=== PATIENT | male | born 1940 | race Caucasian/White ===

== ENCOUNTER 2020-07-17 14:58 | Outpatient (RCR) | payer MEDICARE, OTHER, SELFPAY ==
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
== END 2020-08-02 16:15 | disposition home or self-care (01) ==
LOC: CHSPT 14:58
DX: M25.561 Pain in right knee (principal); T84.84XA Pain due to internal orthopedic prosthetic devices, implants and grafts, initial encounter; Z96.651 Presence of right artificial knee joint
CPT/HCPCS: 97110; 97140; 97161

== ENCOUNTER 2021-06-16 20:57 | Emergency (ER) | payer MEDICARE, OTHER, SELFPAY ==
[2021-06-16 20:59] VITALS: BP 148/102; PULSE 74; RESP 20; TEMP 36.7; O2SAT 99
--- NOTE | 2021-06-16 21:15 | ED.NAVMDI ---
HPI - Nausea/Vomiting/Diarrhea General Chief complaint: Nausea/Vomiting/Diarrhea Stated complaint: weakness/ n/v Time Seen by Provider: 06/16/21 21:00 History of Present Illness HPI Narrative: 80-year-old male presents the emergency room with complaints of nausea and vomiting that started tonight. Admits to one episode of vomiting this evening. Denies diarrhea constipation, or abdominal pain. Patient states that he was diagnosed with Covid 4 weeks ago, and has not had an appetite since. Patient states that he has had to force himself to eat food since having Covid. Patient reports heavy alcohol use drinking anywhere from 10-20 alcoholic drinks a day. Related Data Allergies Allergy/AdvReac Type Severity Reaction Status Date / Time No Known Allergies Allergy Unknown Verified 06/16/21 21:28 Review of Systems Review of Systems: CONSTITUTIONAL: Denies fever, chills, or sweats. EYES: Denies visual changes, redness, or discharge. ENT: Denies rhinorrhea, congestion, sore throat, or otalgia. CARDIOVASCULAR: Denies chest pain, palpitations, or edema. RESPIRATORY: Denies cough or dyspnea. GASTROINTESTINAL: Denies abdominal pain. Reports nausea vomiting GENITOURINARY: Denies dysuria or hematuria. SKIN: Denies rash or itching. MUSCULOSKELETAL: Denies back pain, joint pain, or myalgia. NEUROLOGIC: Denies headache, numbness, dizziness, or weakness. PSYCHIATRIC: Denies anxiety or depression. Exam Narrative: GENERAL: Well-appearing, well-nourished, and in no acute distress. HEAD: Normocephalic, atraumatic. EYES: PERRLA and EOMI. ENT: Nares clear, no rhinorrhea or epistaxis. Mucous membranes moist. NECK: Supple. No adenopathy or masses. No carotid bruits or JVD CHEST: Clear to auscultation. No respiratory distress. No wheezes rales or rhonchi HEART: Regular rate and rhythm. No murmur heard. Normal peripheral pulses. ABDOMEN: Soft, nontender, distended, normal active bowel sounds. EXTREMITIES: Normal range of motion. No edema. SKIN: Warm, dry, no rash. NEURO: No focal deficits. Alert and oriented x3. PSYCH: Normal mood and affect. Course Vital Signs Vital signs: Vital Signs Temperature 36.7 C 06/16/21 20:59 Pulse Rate 74 06/16/21 20:59 Respiratory Rate 20 06/16/21 20:59 Blood Pressure 148/102 H 06/16/21 20:59 Pulse Oximetry 99 06/16/21 20:59 Temperature 36.7 C 06/16/21 20:59 Pulse Rate 74 06/16/21 20:59 Respiratory Rate 20 06/16/21 20:59 Blood Pressure 148/102 H 06/16/21 20:59 Pulse Oximetry 99 06/16/21 20:59 MDM - Nausea/Vomiting/Diarrhea MDM Narrative Medical decision making narrative: 80-year-old male came to the emergency room with complaints of feeling dehydrated nauseated. CMP shows an a elevated AST and ALT slight hyponatremia, likely related to his heavy alcohol intake. EtOH level is .99. CBC is unremarkable. Ketonuria is present likely due to dehydration. Patient was given a liter of fluid and Zofran, states that he feels much better and like to be discharged with gastro enteritis. Lab Data Attestation: I reviewed the patient's lab results. Result diagrams: 06/16/21 21:16 06/16/21 21:16 Labs: Lab Results 06/16/21 06/16/21 06/16/21 Range/Units 21:16 21:16 21:16 WBC 6.2 (4.5-10.0) K/mm3 RBC 4.33 L (4.6-6.20) M/mm3 Hgb 14.4 (14.0-18.0) g/dL Hct 41.5 L (42.0-52.0) % MCV 95.8 (80-100) fl MCH 33.3 (26-34) pg MCHC 34.7 (32-36) g/dl RDW 13.7 (11.5-14.5) % Plt Count 85 L (150-375) k/mm3 MPV 12.7 H (7.4-10.4) fl Immature Gran % (Auto) 0.3 (0-0.5) % Neut % (Auto) 62.3 (45.5-73.1) % Lymph % (Auto) 17.2 L (18.3-44.2) % Moore % (Auto) 11.9 H (2.6-8.5) % Eos % (Auto) 7.2 H (0-4.4) % Baso % (Auto) 1.1 (0.2-1.2) % Lymph # (Auto) 1.07 (0.9-3.2) K/mm3 Moore # (Auto) 0.7 H (0.1-0.6) K/mm3 Eos # (Auto) 0.5 H (0-0.3) K/mm3 Baso # (Auto) 0.1 (0.0-0.1) K/mm3 Abs Imm
[2021-06-16 21:23] LABS: Basophils Absolute Auto 0.1 K/mm3 (0.0-0.1); Basophils Percent Auto 1.1 % (0.2-1.2); Eosinophils Absolute Auto 0.5 K/mm3 (0-0.3); Eosinophils Percent Auto 7.2 % (0-4.4); Hematocrit 41.5 % (42.0-52.0); Hemoglobin 14.4 g/dL (14.0-18.0); Immature Granulocyte Absolute 0.02 K/mm3 (0.00-0.031); Immature Granulocyte Percent A 0.3 % (0-0.5); Lymphocytes Absolute Auto 1.07 K/mm3 (0.9-3.2); Lymphocytes Percent Auto 17.2 % (18.3-44.2); Mean Corpuscular HGB Conc 34.7 g/dl (32-36); Mean Corpuscular Hemoglobin 33.3 pg (26-34); Mean Corpuscular Volume 95.8 fl (80-100); Mean Platelet Volume 12.7 fl (7.4-10.4); Monocytes Absolute Auto 0.7 K/mm3 (0.1-0.6); Monocytes Percent Auto 11.9 % (2.6-8.5); Neutrophils Absolute Auto 3.9 K/mm3 (1.3-6.7); Neutrophils Percent Auto 62.3 % (45.5-73.1); Platelet Count Result 85 k/mm3 (150-375); Red Blood Count 4.33 M/mm3 (4.6-6.20); Red Cell Distribution Width 13.7 % (11.5-14.5); White Blood Count 6.2 K/mm3 (4.5-10.0)
[2021-06-16] MEDS: ONDANSETRON INJ 4 MG/2 ML VIAL IV PUSH (21:26)
[2021-06-16] MEDS: SODIUM CHLORIDE 0.9% IV 1,000 ML 999 ML IV CONT (21:26)
[2021-06-16 21:33] LABS: Ethanol 99 mg/dL (<10)
[2021-06-16 21:52] LABS: Add Urine Microscopic? YES; Appearance Urine Clear (Clear); Bilirubin Urine Negative (Negative); Blood Urine 2+ (Negative); Color Urine Yellow (Yellow); Glucose Urine UA Negative (Negative); Ketones Urine 1+ mg/dL (Negative); Leukocyte Esterase Ur 1+ LEU/UL (Negative); Mucus Urine Rare /lpf; Nitrate Urine Negative (Negative); Protein Urine 2+ mg/dL (Negative); RBC Urine 0-2 /hpf (0-2); Specific Grav Ur 1.016 (1.001-1.035); Urobilinogen Urine Negative mg/dL (<2.0)
[2021-06-16 22:12] LABS: Alanine Aminotransferase 61 U/L (4-50); Albumin Level 4.4 g/dL (3.5-5.1); Alkaline Phosphatase 124 U/L (38-126); Anion Gap 13 mmol/L (8-16); Aspartate Amino Transferase 150 U/L (17-59); Blood Urea Nitrogen 9 mg/dL (9-20); Calcium 8.6 mg/dL (8.4-10.2); Carbon Dioxide 18 mmol/L (22-30); Chloride 97 mmol/L (98-107); Estimated CRCL calculation 93 ml/min; Estimated Glomerular Filt Rate > 60; Glucose 94 mg/dL (65-110); Lipase 82 U/L (23-300); Potassium 4.5 mmol/L (3.4-5.0); Sodium 128 mmol/L (137-145)
[2021-06-16 23:08] VITALS: BP 157/68; PULSE 75; RESP 20; TEMP 36.8; O2SAT 98
[2021-06-16 23:09] VITALS: BP 157/68; PULSE 75; RESP 20; TEMP 36.8; O2SAT 98
== END 2021-06-16 23:13 | disposition home or self-care (01) ==
PROVIDERS: Emergency Provider Nurse Practitioner Family
DX: K52.9 Noninfective gastroenteritis and colitis, unspecified (principal); F10.10 Alcohol abuse, uncomplicated; Y90.4 Blood alcohol level of 80-99 mg/100 ml; Z86.16 Personal history of COVID-19; R82.998 Other abnormal findings in urine; E78.00 Pure hypercholesterolemia, unspecified; I10 Essential (primary) hypertension; Z95.5 Presence of coronary angioplasty implant and graft; Z95.0 Presence of cardiac pacemaker
CPT/HCPCS: 36415; 80053; 80307; 81001; 82248; 83690; 85025; 87086; 87088; 96361; 96374; 99284; J2405; J7030

== ENCOUNTER 2021-07-16 19:21 | Emergency (ER) | payer MEDICARE, OTHER, SELFPAY ==
--- NOTE | ~2021-07-16 | XR_ITS ---
EXAMINATION: XR chest 1V Exam Date/Time: 07/16/2021 20:25 CDT CLINICAL HISTORY: WEAKNESS, COVID IN [place], CONFUSION SINCE Comparison: None available. RESULT: Lines, tubes, and devices: Left chest pacer with intact leads.. Lungs and pleura: Clear. Cardiomediastinal silhouette: Aortic ectasia. Calcified hilar lymph nodes. Other: No acute osseous or upper abdominal finding. IMPRESSION: No acute cardiopulmonary process Reviewed, dictated and finalized at location K.
--- NOTE | ~2021-07-16 | CT_ITS ---
EXAMINATION: CT brain wo con DATE: 07/16/2021 20:28 INDICATION: Confusion. TECHNIQUE: Computed tomography (CT) of the head was performed without intravenous contrast. The mA wa s adjusted according to patient size. Iterative reconstruction technique was employed. The dose-lengt h product was 605.33 mGy-cm. COMPARISON: None FINDINGS: No acute intracranial hemorrhage or extra-axial fluid collection. No hydrocephalus, mass, or herniation. No acute ischemic infarct. Unremarkable dural venous sinus attenuation. No acute osseous abnormality. The aerated spaces are clear. Moderate atrophy. Atherosclerotic intracranial calcifications. IMPRESSION: No acute intracranial process. Reviewed, dictated and finalized at location K.
[2021-07-16 19:25] VITALS: BP 130/47; PULSE 74; RESP 14; TEMP 37.2; O2SAT 99
--- NOTE | 2021-07-16 20:08 | ED.WEAKNESS ---
HPI - Weakness General Chief complaint: Weakness Stated complaint: Confusion Time Seen by Provider: 07/16/21 19:40 Source: patient and family Limitations: no limitations History of Present Illness HPI Narrative: Patient is 80 years old white male brought to the emergency room by his daughter and to his girlfriend who lives in a different house telling me that patient woke up at 6 PM thinking it was 6 AM. Also been feeling there is something not right going on in his body. Patient also was in the driveway of his girlfriend and sleeping in the car. Also noticed that patient been staggering on his feet today. And keeps repeating things. Patient is telling me that he been feeling weak , tired, no appetite, lost for taste and smell since April 2021 after having the Covid infection. Patient lives alone, girlfriend lives across the street in a different house. Patient drinks daily, last alcohol intake was 2 to 3 hours ago. Patient is telling me that he loves to his beer. Currently denying any fever, chills, nausea, vomiting, abdominal pain, chest pain, shortness of breath, headache, focal deficit. Patient is awake, alert and oriented x4. Patient keeps telling me that he would like to go home as soon as possible. Related Data Allergies Allergy/AdvReac Type Severity Reaction Status Date / Time No Known Allergies Allergy Unknown Verified 06/16/21 21:28 Review of Systems Review of Systems: CONSTITUTIONAL: Denies fever, chills, or sweats. EYES: Denies visual changes, redness, or discharge. ENT: Denies rhinorrhea, congestion, sore throat, or otalgia. CARDIOVASCULAR: Denies chest pain, palpitations, or edema. RESPIRATORY: Denies cough or dyspnea. GASTROINTESTINAL: Denies abdominal pain, nausea, vomiting, or diarrhea. GENITOURINARY: Denies dysuria or hematuria. SKIN: Denies rash or itching. MUSCULOSKELETAL: Denies back pain, joint pain, or myalgia. NEUROLOGIC: Denies headache, numbness, or weakness. PSYCHIATRIC: Denies anxiety or depression. Exam Narrative: General appearance: Well-developed, well-nourished Skin: Normal color Head: Normocephalic, nontraumatic Eyes: Clear conjunctiva ENT: Oropharynx normal, ears normal, nose normal Neck: Supple, nontender Chest and respiratory: Airway patent, no respiratory distress, no accessory muscle use Heart: Regular rate/rhythm Abdomen: Soft, nontender, no organomegaly, quiet bowel sounds Vascular: Normal peripheral pulses, normal capillary refill. Musculoskeletal: Normal range of motion, nontender back Neurologic: Alert and oriented ?3, FILM INSPECTOR is normal as tested, no gross motor deficit Course Course Emergency Course: Stable Vital Signs Vital signs: Vital Signs Temperature 37.2 C 07/16/21 19:25 Pulse Rate 74 07/16/21 19:25 Respiratory Rate 14 07/16/21 19:25 Blood Pressure 130/47 L 07/16/21 19:25 Pulse Oximetry 99 07/16/21 19:25 Temperature 37.2 C 07/16/21 19:25 Pulse Rate 74 07/16/21 19:25 Respiratory Rate 14 07/16/21 19:25 Blood Pressure 130/47 L 07/16/21 19:25 Pulse Oximetry 99 07/16/21 19:25 MDM - Weakness MDM Narrative Medical decision making narrative: Patient presents with general weakness, tiredness, long hours sleep, alcohol use daily, most of the symptoms started after having the Covid infection April 2021. Long COVID, depression, alcohol abuse complication are my concern. Differential diagnosis as below Differential Diagnosis Differential diagnosis: Likely anemia, hypothyroidism, rhabdomyolysis, dehydration and other (Long COVID, alcoholism) Imaging Data Radiologist's impression: Impressions Head CT 07/16/21 20:40 IMPRESSION: No acute intracranial pr
--- NOTE | 2021-07-16 20:09 | ECG_ITS ---
Measurements Intervals Grant Rate: 72 P: 199 MT: 323 QRS: 19 QRSD: 86 T: -37 QT: 384 QTc: 423 Interpretive Statements ELECTRONIC ATRIAL PACEMAKER NONSPECIFIC ST & T-WAVE ABNORMALITY ABNORMAL ECG NO PREVIOUS ECG AVAILABLE FOR COMPARISON Electronically Signed On 07-17-2021 15:43:52 CDT by Polo Goodrich M.D.
[2021-07-16 20:27] VITALS: BP 130/78; PULSE 74; RESP 16; TEMP 36.8; O2SAT 100
[2021-07-16 20:47] LABS: Appearance Urine Clear (Clear); Bilirubin Urine Negative (Negative); Blood Urine Trace-lysed (Negative); Color Urine Yellow (Yellow); Glucose Urine UA Negative (Negative); Ketones Urine Negative (Negative); Leukocyte Esterase Ur Negative LEU/UL (Negative); Nitrate Urine Negative (Negative); Protein Urine Negative (Negative); Urobilinogen Urine 0.2 mg/dL (<2.0)
[2021-07-16 20:51] LABS: Add Urine Microscopic? YES
[2021-07-16] MEDS: SODIUM CHLORIDE 0.9% IV 1,000 ML 999 ML IV CONT (20:58)
[2021-07-16 20:59] LABS: Amphetamine Screen Urine Negative (Negative); Barbiturate Screen Urine Negative (Negative); Benzodiazepines Screen Urine Negative (Negative); Cannabinoid Screen Urine Negative (Negative); Cocaine Screen Urine Negative (Negative); Methadone Screen Urine Negative (Negative); Opiate Screen Urine Negative (Negative); Phencyclidine Screen Urine Negative (Negative)
[2021-07-16 21:05] LABS: Basophils Absolute Auto 0.1 K/mm3 (0.0-0.1); Eosinophils Percent Auto 0.3 % (0-4.4); Hematocrit 43.6 % (42.0-52.0); Hemoglobin 14.5 g/dL (14.0-18.0); Immature Granulocyte Absolute 0.01 K/mm3 (0.00-0.031); Immature Granulocyte Percent A 0.1 % (0-0.5); Immature Platelet Fraction Pct 3.8 % (0.9-11.2); Lymphocytes Absolute Auto 3.01 K/mm3 (0.9-3.2); Lymphocytes Percent Auto 44.2 % (18.3-44.2); Mean Corpuscular HGB Conc 33.3 g/dl (32-36); Mean Corpuscular Hemoglobin 32.6 pg (26-34); Mean Platelet Volume 11.1 fl (7.4-10.4); Monocytes Absolute Auto 0.7 K/mm3 (0.1-0.6); Monocytes Percent Auto 10.1 % (2.6-8.5); Neutrophils Percent Auto 44.3 % (45.5-73.1); Platelet Count Result 164 k/mm3 (150-375); Red Blood Count 4.45 M/mm3 (4.6-6.20); White Blood Count 6.8 K/mm3 (4.5-10.0)
[2021-07-16 21:07] LABS: WBC Urine 0-3 /hpf
[2021-07-16 21:15] LABS: Alanine Aminotransferase 47 U/L (4-50); Albumin Level 4.2 g/dL (3.5-5.1); Alkaline Phosphatase 117 U/L (38-126); Anion Gap 12 mmol/L (8-16); Aspartate Amino Transferase 94 U/L (17-59); Bilirubin,Total 0.7 mg/dL (0.2-1.3); Blood Urea Nitrogen 12 mg/dL (9-20); Calcium 8.4 mg/dL (8.4-10.2); Carbon Dioxide 22 mmol/L (22-30); Chloride 105 mmol/L (98-107); Creatine Kinase 314 U/L (55-170); Estimated Glomerular Filt Rate > 60; Glucose 90 mg/dL (65-110); INR 1.2; Potassium 4.1 mmol/L (3.4-5.0); Prothrombin Time 14.2 Seconds (11.1-14.7); Sodium 139 mmol/L (137-145)
[2021-07-16 21:16] LABS: Partial Thromboplastin Time 30.2 SECONDS (22.3-36.8)
[2021-07-16 21:26] LABS: Troponin I 0.031 ng/mL (0.000-0.034)
[2021-07-16 21:30] VITALS: BP 130/78; PULSE 68; RESP 16; TEMP 36.8; O2SAT 100
[2021-07-19 17:02] LABS: Methyl Alcohol Level None Detected (None Detected)
== END 2021-07-16 22:03 | disposition home or self-care (01) ==
PROVIDERS: Emergency Provider Emergency Medicine; PCP Internal Medicine
DX: R53.1 Weakness (principal); R43.8 Other disturbances of smell and taste; R53.83 Other fatigue; R63.0 Anorexia; U09.9 Post COVID-19 condition, unspecified; F10.20 Alcohol dependence, uncomplicated; Y90.9 Presence of alcohol in blood, level not specified; Z95.0 Presence of cardiac pacemaker; R94.31 Abnormal electrocardiogram [ECG] [EKG]
CPT/HCPCS: 36415; 70450; 71045; 80053; 80307; 81001; 82550; 84443; 84484; 84600; 85025; 85055; 85610; 85730; 93005; 96360; 99284; J7030

== ENCOUNTER 2021-11-07 08:57 | Outpatient (RCR) | payer MEDICARE, OTHER, SELFPAY ==
--- NOTE | 2021-11-07 09:55 | PTOPEVAL ---
Thank you for referring Ralph Cosme to [facility].? The patient is scheduled to be seen for therapy? __2__x/week for 10 visits. Please review, sign, date and return this plan of care CHUCHO. I agree with and certify that the following plan of care is medically necessary. Referring Physician Date Admitting Provider: Attending Provider: Fazal Altman, Referring Provider: *PT Outpatient Evaluation Start: 11/07/21 09:09 Freq: Status: Active Protocol: Document 11/07/21 09:00 EDILBERTO (Rec: 11/07/21 09:54 EDILBERTO [id number]) Therapy Assessment Status Assessment Status Assessment Status Evaluation Outpatient Past Medical History Cardiovascular History Hx Coronary Stent Yes Hx Hypercholesterolemia Yes Hx Hypertension Yes Hx Pacemaker Yes Respiratory History Hx COVID-19 Yes Evaluation Information Problem Diagnosis low back pain Onset 10/31/21 Subjective Information Pt. reports that he has had Query Text:As Reported By Patient/ several years of back and leg Family pain. He reports that he will have pain into the calves on occassion. Pt. reports that he can only stand for about 10 minutes before pain forces him to sit. He reports that pain will occassionally wake him at night. 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 He reports that he would like to be able to stand longer and return to cutting wood and walking through the [place] like he was able to do several months ago. Pain Assessment Timing of Pain Assessment Timing of Pain Assessment Pre-Treatment Pain Scale Pain Scale Used Numeric (1 - 10) Self Report Pain Assessment Lower Back Reported Pain Level 6 Pain Description Aching Pain Frequency Continuous Pain Aggravating Factors Exercise/Activity,Walking, Weight Bearing/Standing Pain Score Pain Score 6: Self Report Interventions Used Interventions Used By Clinicians Exercise Cervical and Lumbar ROM Lumbar ROM Lumbar Flexion Active Knee Query Text:Hands to: Lumbar Extension (0-40) 10 Query Text:Active in Degrees Lumbar Lateral Flexion Right (0-40) 20 Query Te
--- NOTE | 2022-01-20 12:48 | PCPTNOTE ---
Mr. Cosme attended a total of 4 treatment sessions. He has failed to return to the clinic and will be discharged from our care. Refer to last daily note for pt. discharge status.
== END 2021-11-19 15:10 | disposition home or self-care (01) ==
LOC: CHSPT 08:57
PROVIDERS: PCP Internal Medicine; Visit Provider Internal Medicine
DX: M54.50 Low back pain, unspecified (principal)
CPT/HCPCS: 97110; 97112; 97161

== ENCOUNTER 2023-08-28 11:44 | Emergency (ER) | payer MEDICARE, OTHER, SELFPAY ==
--- NOTE | ~2023-08-28 | XR_ITS ---
Clinical Indication: Shortness of breath PA and lateral views of the chest: Comparison: 07/16/2021 Findings: The lungs are clear, without evidence of focal consolidation or pleural effusion. Cardiome diastinal silhouette is stable, with pacemaker device. Bones and soft tissues are unremarkable. Impression: Clear lungs. Pacemaker device. Reviewed, dictated and finalized at location . Impression: Clear lungs. Pacemaker device.
--- NOTE | ~2023-08-28 | US_ITS ---
EXAMINATION: US venous doppler [facility] DATE: 08/28/2023 12:10 INDICATION: Left lower limb pain. TECHNIQUE: Grayscale ultrasound images without and with compression and Doppler ultrasound images of the left lower extremity veins were obtained. COMPARISON: None. FINDINGS: The visualized portions of left common femoral vein, profunda (deep) femoral vein, femoral vein, popl iteal vein, peroneal veins, posterior tibial veins, and greater saphenous vein outflow are patent. IMPRESSION: 1. No deep venous thrombosis. Reviewed, dictated and finalized at location A.
[2023-08-28 11:45] VITALS: BP 114/65; PULSE 63; RESP 18; TEMP 37; O2SAT 94
--- NOTE | 2023-08-28 11:55 | ED.LOWEXIN ---
HPI - Extremity Injury (Lower) General Chief Complaint: Extremity Problem,Nontraumatic Stated Complaint: leg pain Time Seen by Provider: 08/28/23 11:48 Source: patient Mode of arrival: ambulatory Limitations: no limitations History of Present Illness HPI Narrative: Patient is a 82-year-old male with left lower extremity pain for the past week. Had what sounded to be sciatica on the left lower extremity and was seen at the urgent care and given steroids and a muscle relaxer. That got better and further started to have a specific left hip and left calf pain for the past 3 days. He is here for an ultrasound of the left lower extremity to rule out DVT. No injury. Also, patient has had some shortness of breath and congestion for the past 2 days. MD complaint: other ( Pain of the left calf) Onset (ago): day(s) ( 3) Type of Injury: other ( no particular injury; this occurred on its own) Place: home Severity: moderate Severity scale (1-10): 4 Relieving factors: nothing Exacerbating factors: nothing Associated symptoms: swelling and other ( pain) Other symptoms: none Related Data Allergies Allergy/AdvReac Type Severity Reaction Status Date / Time No Known Allergies Allergy Unknown Verified 06/16/21 21:28 Review of Systems Review of Systems: All systems reviewed & are unremarkable except as noted in HPI and below Constitutional: Constitutional: Reports no additional constitutional complaints Eyes: Eyes: Reports no additional eye complaints ENT: Reports system reviewed and no additional complaints, except as documented Cardiovascular: Cardiovascular: Reports no additional cardiovascular complaints Respiratory: Respiratory: Reports no additional respiratory complaints Gastrointestinal: Gastrointestinal: Reports no additional gastrointestinal complaints Genitourinary: Genitourinary: Reports no additional male genitourinary complaints Musculoskeletal: Musculoskeletal: Reports no additional musculoskeletal complaints Integumentary/Breasts: Skin/Breast: Reports system reviewed and no additional complaints, except as docu Neurologic: Reports system reviewed and no additional complaints, except as documented Psychiatric: Psychiatric: Reports no additional psychiatric complaints Endocrine: Endocrine: Reports no additional endocrine complaints Hematologic/Lymphatic: Hematologic/Lymphatic: Reports no additional hematologic/lymphatic complaints Allergic/Immunologic: Allergic/Immunologic: Reports no additional allergic/immunologic complaints Exam Const: General: healthy appearing Nutritional Appearance: well nourished Orientation/consciousness: patient oriented x3 HENMT: Head: normal to inspection Ears: external ears normal Face/Nose/Sinus: Normal external nose present Eyes: Conjunctivae: conjunctivae normal Pupils: Equal, round and reactive pupils present EOM: EOMs intact bilaterally Neck: Neck: normal visual inspection Chest: Chest palpation & inspection: normal inspection of the chest Resp: Effort & Inspection: normal respiratory effort and not labored Auscultation: not clear to auscultation bilaterally, rhonchi ( right worse than left) throughout and diminished lung sounds diffuse Other: Right worse than left Cardio: Rate: regular rate Rhythm: regular rhythm Heart sounds: no murmurs GI: Inspection: non-distended GI Palp: Yes Soft to palpation and No Tenderness to palpation present (GI) Auscultation: normal bowel sounds : General: Yes bladder normal to palpation Back/Spine/Pelvis: Back: no CVA tenderness Skin: General skin exam: normal color Rashes: no rashes Wounds: no wounds Neuro: General: patient oriented x3 Cranial nerves: Yes Nystagmus not present Speech: normal speech Extrem: General: normal to inspection, no clubbing, cyanosis or edema and no pedal edema Other: slightly tender left calf to palpation without significant swelling at this time or hardness; no cords and equivocal H
[2023-08-28 13:02] VITALS: BP 118/70; PULSE 65; RESP 20; TEMP 36.9; O2SAT 98
== END 2023-08-28 13:02 | disposition home or self-care (01) ==
PROVIDERS: Emergency Provider Emergency Medicine
DX: J40 Bronchitis, not specified as acute or chronic (principal); M79.662 Pain in left lower leg; M54.9 Dorsalgia, unspecified; M54.32 Sciatica, left side
CPT/HCPCS: 71046; 93971; 99284

== ENCOUNTER 2024-03-06 09:57 | Emergency (ER) | payer MEDICARE, OTHER, SELFPAY ==
--- NOTE | ~2024-03-06 | XR_ITS ---
EXAMINATION: XR humerus LT DATE: 03/06/2024 10:19 INDICATION: Left humerus pain. Fall. TECHNIQUE: 2 views of left humerus were obtained. COMPARISON: None. FINDINGS: Alignment is normal. No acute fracture. There are old healed left rib fractures. There is m ild osteoarthritis of glenohumeral joint. There is a left chest pacer. IMPRESSION: 1. Mild osteoarthritis of glenohumeral joint. Reviewed, dictated and finalized at location A. NATION ASSEMBLER
--- NOTE | ~2024-03-06 | XR_ITS ---
EXAMINATION: XR elbow LT min 3V DATE: 03/06/2024 10:19 INDICATION: Left elbow pain. Fall. TECHNIQUE: 3 views of left elbow were obtained. COMPARISON: None. FINDINGS: Alignment is normal. No fracture. There is mild elbow joint osteoarthritis. There are enthe sophytes at the medial and lateral humeral epicondyles. No elbow joint effusion. IMPRESSION: 1. Mild elbow joint osteoarthritis. Reviewed, dictated and finalized at location A. ICIAN ASSISTANT
--- NOTE | ~2024-03-06 | XR_ITS ---
EXAMINATION: XR shoulder LT min 2V DATE: 03/06/2024 10:19 INDICATION: Left shoulder pain. Fall. TECHNIQUE: 3 views of left shoulder were obtained. COMPARISON: None. FINDINGS: Alignment is normal. No fracture. There is mild osteoarthritis of glenohumeral joint and se jose l osteoarthritis of acromioclavicular joint. There is a left chest pacer. IMPRESSION: 1. Polyarticular osteoarthritis. Reviewed, dictated and finalized at location A. AL EQUIPMENT REPAIRER
[2024-03-06 09:57] VITALS: BP 143/86; PULSE 74; RESP 19; TEMP 36.4; O2SAT 94
--- NOTE | 2024-03-06 09:59 | ED.UPPEXIN ---
HPI - Extremity Injury (Upper) General Chief Complaint: Fall Stated Complaint: shoulder pain Time Seen by Provider: 03/06/24 09:57 Source: patient Mode of arrival: ambulatory Limitations: no limitations History of Present Illness HPI narrative: patient is an 83-year-old male with a left shoulder upper extremity injury after falling yesterday ground level. He fell onto the left elbow initially. No head or neck injury. He fell only on to the elbow with the pain is of the upper/proximal left humeral area. MD complaint: injury to: left ( Proximal will humerus) Onset (ago): day(s) (2) Other Extremity Injury: Left: elbow and shoulder Other injuries: none Place: home Severity: moderate Severity scale (1-10): 5 Relieving factors: cold therapy and immobilization Exacerbating factors: immobilization, medication and movement of extremity Context: fall Associated symptoms: denies other symptoms Treatments prior to arrival: cold therapy and NSAIDS Related Data Allergies Allergy/AdvReac Type Severity Reaction Status Date / Time No Known Allergies Allergy Unknown Verified 06/16/21 21:28 Review of Systems Review of Systems: All systems reviewed & are unremarkable except as noted in HPI and below Constitutional: Constitutional: Reports no additional constitutional complaints Eyes: Eyes: Reports no additional eye complaints ENT: Reports system reviewed and no additional complaints, except as documented Cardiovascular: Cardiovascular: Reports no additional cardiovascular complaints Respiratory: Respiratory: Reports no additional respiratory complaints Gastrointestinal: Gastrointestinal: Reports no additional gastrointestinal complaints Genitourinary: Genitourinary: Reports no additional male genitourinary complaints Musculoskeletal: Musculoskeletal: Reports no additional musculoskeletal complaints Integumentary/Breasts: Skin/Breast: Reports system reviewed and no additional complaints, except as docu Neurologic: Reports system reviewed and no additional complaints, except as documented Psychiatric: Psychiatric: Reports no additional psychiatric complaints Endocrine: Endocrine: Reports no additional endocrine complaints Hematologic/Lymphatic: Hematologic/Lymphatic: Reports no additional hematologic/lymphatic complaints Allergic/Immunologic: Allergic/Immunologic: Reports no additional allergic/immunologic complaints Exam Const: General: healthy appearing Nutritional Appearance: well nourished Orientation/consciousness: patient oriented x3 HENMT: Head: normal to inspection Ears: external ears normal Face/Nose/Sinus: Normal external nose present Eyes: Conjunctivae: conjunctivae normal Pupils: Equal, round and reactive pupils present EOM: EOMs intact bilaterally Neck: Neck: normal visual inspection Chest: Chest palpation & inspection: normal inspection of the chest Resp: Effort & Inspection: normal respiratory effort and not labored Auscultation: clear to auscultation bilaterally and no crackles Cardio: Rate: regular rate Rhythm: regular rhythm Heart sounds: no murmurs GI: Inspection: non-distended GI Palp: Yes Soft to palpation, No Tenderness to palpation present (GI) and No Guarding due to palpation present (GI) Auscultation: normal bowel sounds : General: Yes bladder normal to palpation Back/Spine/Pelvis: Back: no CVA tenderness Cervical Spine: collar present Neuro: General: patient oriented x3 Cranial nerves: Yes Nystagmus not present Speech: normal speech Gait exam (Neuro): Normal gait present Extrem: General: normal to inspection Other: tender left proximal humerus to palpation; tender left elbow to palpation; patient is having difficulties lifting his left upper extremity due to pain Psych: Mental Status: mental status grossly normal Affect: normal affect Attitude: cooperative Course Vital Signs Vital signs: Vital Signs Temperature 36.4 C L 03/06/24 09:57 Pulse Rate 74 03/06/24 09:57 Respiratory Rate 19 03/06/24 09:57 Blood Pressure 143/86 H 03/06/24 09:57 Pulse Oximetry 94 03/06/24 09:57 Oxygen Delivery Room Air 03/06/24 09:57 Temperature 36.4 C L 03/06/24 09:57 Pulse Rate 74 03/06/24 09:57 Respiratory Rate 19 03/06/24 09:57 Blood Pressure 143/86 H 03/06/24 09:57 Pulse Oximetry 94 03/06/24 09:57 Oxygen Delivery Room Air 03/06/24 09:57 MDM - Extremity Injury (Upper) MDM Narrative Medical decision making narrative: patient is a 83-year-old male with a left shoulder and left elbow injury yesterday. We will do x-rays at this time. Imaging Data Attestation: I personally reviewed and interpreted this imaging study as follows: Radiologist's impression: X-ray left shoulder and humerus and elbow all show osteoarthritis without acute process Discharge Plan Discharge Clinical Impression: Fall Qualifiers: Encounter type: initial encounter Qualified Code(s): W19.XXXA - Unspecified fall, initial encounter Contusion Qualifiers: Encounter type: initial encounter Contusion area: elbow Laterality: left Qualified Code(s): S50.02XA - Contusion of left elbow, initial encounter Patient Disposition: Home, Self-Care Condition: Stable Instructions: Fall Prevention for Older Adults (ED), Contusion in Adults (ED) Additional Instructions: please follow-up with the primary doctor in the next week. MRI can be done of the left shoulder if continued problems. Prescriptions: New tramadol 50 mg tablet 50 mg PO Q8H PRN (Reason: pain) Qty: 20 0RF Rx Instructions: 1-2 tabs per dose No Action azithromycin 250 mg tablet See Rx Instructions .ROUTE .COMPLEX Qty: 6 0RF Rx Instructions: For 250 mg dose pack: take 500 mg today (day 1), then 250 mg for 4 days (days 2-5) prednisone 20 mg tablet 40 mg PO DAILY 3 Days Qty: 6 0RF ondansetron 4 mg tablet,disintegrating 4 mg PO Q8H Qty: 20 0RF Follow-up/Referrals: UNKNOWN,DOCTOR [Non-Staff] - Time of Disposition: 10:42
== END 2024-03-06 10:48 | disposition home or self-care (01) ==
PROVIDERS: Emergency Provider Emergency Medicine
DX: S50.02XA Contusion of left elbow, initial encounter (principal); W18.30XA Fall on same level, unspecified, initial encounter
CPT/HCPCS: 73030; 73060; 73080; 99284

== ENCOUNTER 2024-04-13 08:55 | Outpatient (RCR) | payer MEDICARE, OTHER, SELFPAY ==
--- NOTE | 2024-04-13 10:07 | OPREHPOC ---
Outpatient Therapy Plan of Care This is a Multidisciplinary Plan of Care that may contain components documented by all disciplines (PT, OT, and ST.) PT Problem 1 PT Problem #1 Knowledge Deficit PT Goal 1 Goal / Goal Update 1. independent and compliant with HEP Target Visit 6 PT Problem 2 PT Problem #2 Pain PT Goal 1 Goal / Goal Update 1. 2/10 pain at worst or less in the L shoulder Target Visit 12 PT Problem 3 PT Problem #3 Impaired Range of Motion PT Goal 1 Goal / Goal Update 1. 135 degrees or better active L shoulder flexion 2. 100 degrees or better active L shoulder abduction 3. 75 degrees or better active L shoulder ER in 90 abd position 4. 60 degrees or better active L shoulder IR in 90 abd position Target Visit 12 PT Problem 4 PT Problem #4 Impaired Strength PT Goal 1 Goal / Goal Update 1. 4+/5 or better L shoulder flexion and abduction 2. 4+/5 or better L shoulder ER Target Visit 12 PT Problem 5 PT Problem #5 Impaired Functional Mobility PT Goal 1 Goal / Goal Update 1. quick dash to display 20% or less functional deficits 2. functional reach behind head to the shirt collar without compensation with the L UE 3. functional reach behind back to the lumbar spine without compensation with the L UE 4. patient to return to home and shop activities without limitations Target Visit 12
--- NOTE | 2024-04-13 10:07 | PTOPEVAL1 ---
Assessment and note entered by JT File, PT Evaluation Information Assessment Status Evaluation Diagnosis acute L shoulder pain, subdeltoid bursitis ICD-10 Condition Codes (PT) Pain in left shoulder M25.512 Other ICD-10 Condition Codes ( M75.52 PT) Subjective Information patient reports he fell on 03/05/24. he reports he fell on the L side on concrete. he reports it took several weeks to get in to see a specialist about it. he reports he was told to go to therapy and rehab the L shoulder. he reports he did have an injection of the L shoulder that hurt worse for 2 days after the injection. he report she has the most trouble reaching his arm up to his side, overhead, and out away from his body due to pain. he reports he is most comfortable keeping the L arm close to his body. he reports he did have xrays of the shoulder, but has not had an MRI yet. he reports it limits his ability to get dressed, bathing in the shower reaching behind him, and getting tools/equipment on his tractor. he reports the shoulder does not hurt unless he uses the arm. he reports initially he was unable to sleep on the L side due to pain, but this has gotten better. Reported Pain Level Pain Score 0: Self Report Assessment PT Clinical Summary mr. melendrez is an 83 yo man who presents to skilled PT services for evaluation and treatment of L shoulder pain following a fall on the L side. he presents today with pain in the L shoulder with activity/use, decreased L shoulder rom, L shoulder weakness, and L shoulder positive special test for RTC and impingement. he would benefit from continued skilled PT to address his objective/ functional deficits and return to his prior level functional activity performance/quality of life. Plan of Care Interventions Hot Pack/Cold Pack,Manual Therapy,Neuro Re- education,Patient/Caregiver Education,Therapeutic Activities,Therapeutic Exercise PT Services Indicated Yes Treatment Frequency and 3x weekly for 12 visits Duration These treatments will address the objective and functional deficits as defined above. The patient will be advanced safely and appropriately in order for the patient to progress towards his/her prior level of function. Additional exercises will be introduced and as well as a comprehensive home exercise program upon discharge, if needed, ?to ensure carryover of functional gains achieved in the clinic. This treatment plan has been reviewed and agreement upon by the patient.
--- NOTE | 2024-05-11 11:22 | OPREHPOC ---
Outpatient Therapy Plan of Care This is a Multidisciplinary Plan of Care that may contain components documented by all disciplines (PT, OT, and ST.) PT Problem 1 PT Problem #1 Knowledge Deficit PT Goal 1 Goal / Goal Update 1. independent and compliant with HEP Target Visit 6 Progress Met PT Problem 2 PT Problem #2 Pain PT Goal 1 Goal / Goal Update 1. 2/10 pain at worst or less in the L shoulder Target Visit 12 PT Goal 2 Goal / Goal Update progressing PT Problem 3 PT Problem #3 Impaired Range of Motion PT Goal 1 Goal / Goal Update 1. 135 degrees or better active L shoulder flexion 2. 100 degrees or better active L shoulder abduction 3. 75 degrees or better active L shoulder ER in 90 abd position 4. 60 degrees or better active L shoulder IR in 90 abd position Target Visit 12 PT Goal 2 Goal / Goal Update progressing PT Problem 4 PT Problem #4 Impaired Strength PT Goal 1 Goal / Goal Update 1. 4+/5 or better L shoulder flexion and abduction 2. 4+/5 or better L shoulder ER Target Visit 12 PT Problem 5 PT Problem #5 Impaired Functional Mobility PT Goal 1 Goal / Goal Update 1. quick dash to display 20% or less functional deficits 2. functional reach behind head to the shirt collar without compensation with the L UE 3. functional reach behind back to the lumbar spine without compensation with the L UE 4. patient to return to home and shop activities without limitations Target Visit 12 PT Goal 2 Goal / Goal Update progressing
--- NOTE | 2024-05-11 11:22 | PTOPPROGNS ---
Assessment and note entered by JT File, PT Evaluation Information Assessment Status Progress Diagnosis acute L shoulder pain, subdeltoid bursitis ICD-10 Condition Codes (PT) Pain in left shoulder M25.512 Other ICD-10 Condition Codes ( M75.52 PT) Subjective Information patient reports he does feel better since starting therapy. however, he reports he continues to have twinges of pain in the front of the L shoulder. he reports last time in therapy he was treated with IASTM to the area and felt improved that day but sore the next. Assessment PT Clinical Summary mr. melendrez is an 83 yo man who presents to skilled PT services for his 10th skilled therapy visit. he presents today with continued deficits in L shoulder rom, strength, and has pain with palpation of the anterior shoulder. during passive L shoulder rom, clunking and popping can be felt. patient is making objective improvements and progress towards goals. continued skilled PT is indicated to achieve his goals and improve his functional activity performance/quality of life. Plan of Care Interventions Hot Pack/Cold Pack,Manual Therapy,Neuro Re- education,Patient/Caregiver Education,Therapeutic Activities,Therapeutic Exercise PT Services Indicated Yes Treatment Frequency and continue per initial POC Duration These treatments will address the objective and functional deficits as defined above. The patient will be advanced safely and appropriately in order for the patient to progress towards his/her prior level of function. Additional exercises will be introduced and as well as a comprehensive home exercise program upon discharge, if needed, ?to ensure carryover of functional gains achieved in the clinic. This treatment plan has been reviewed and agreement upon by the patient.
--- NOTE | 2024-05-20 07:58 | OPREHPOC ---
Outpatient Therapy Plan of Care This is a Multidisciplinary Plan of Care that may contain components documented by all disciplines (PT, OT, and ST.) PT Problem 1 PT Problem #1 Knowledge Deficit PT Goal 1 Goal / Goal Update 1. independent and compliant with HEP Target Visit 6 Progress Met PT Problem 2 PT Problem #2 Pain PT Goal 1 Goal / Goal Update 1. 2/10 pain at worst or less in the L shoulder Target Visit 12 Progress Met PT Goal 2 Goal / Goal Update . PT Problem 3 PT Problem #3 Impaired Range of Motion PT Goal 1 Goal / Goal Update 1. 135 degrees or better active L shoulder flexion 2. 100 degrees or better active L shoulder abduction 3. 75 degrees or better active L shoulder ER in 90 abd position 4. 60 degrees or better active L shoulder IR in 90 abd position Target Visit 12 Progress Partially Met PT Goal 2 Goal / Goal Update . PT Problem 4 PT Problem #4 Impaired Strength PT Goal 1 Goal / Goal Update 1. 4+/5 or better L shoulder flexion and abduction 2. 4+/5 or better L shoulder ER Target Visit 12 Progress Partially Met PT Problem 5 PT Problem #5 Impaired Functional Mobility PT Goal 1 Goal / Goal Update 1. quick dash to display 20% or less functional deficits 2. functional reach behind head to the shirt collar without compensation with the L UE 3. functional reach behind back to the lumbar spine without compensation with the L UE 4. patient to return to home and shop activities without limitations Target Visit 12 Progress Met PT Goal 2 Goal / Goal Update .
--- NOTE | 2024-05-24 10:22 | PTOPDC ---
Assessment and note entered by JT File, PT Evaluation Information Assessment Status Discharge Diagnosis acute L shoulder pain, subdeltoid bursitis ICD-10 Condition Codes (PT) Pain in left shoulder M25.512 Other ICD-10 Condition Codes ( M75.52 PT) Subjective Information patient reports his shoulder is the best it has ever felt. he reports he is ready to DC therapy today. Assessment PT Clinical Summary mr. melendrez presents to skilled PT for his 12th skilled therapy visit. he dispoays improved rom and strength of the L shoulder. he now reports no pain, and the best his shoulder has felt. he will DC skilled PT, and continue with HEP independent at home. Plan of Care PT Services Indicated Yes
== END 2024-05-20 11:00 | disposition home or self-care (01) ==
LOC: CHSPT 08:55
PROVIDERS: Visit Provider Physician Assistant
DX: M25.512 Pain in left shoulder (principal); M75.52 Bursitis of left shoulder
CPT/HCPCS: 97110; 97140; 97161; 97530